=== PATIENT | female | born 1980 | race Caucasian/White ===

== ENCOUNTER 2016-04-07 06:26 | Observation (INO) | payer BC, MEDICAID ==
[~2016-04-07 06:26] MED LIST: Buffered Lidocaine 1% SYR 3ML* 3 ML/SYR SYRINGE INTRADERM ONE; Dexamethasone IV* 4 MG/ML 1 ML (4 MG) IV SLOW PU ONE; Famotidine IV* 10 MG/ML 2 ML (20 mg) IV ONE
[2016-04-07] MEDS ORDERED: Thrombin 5,000 UNITS* 1 APPLIC KIT - topical use - TOPICAL ONE (06:54)
[2016-04-07] MEDS ORDERED: Lidocain 1% EPI 1:100,000 * 30 ML MDV ONE (06:54)
[2016-04-07] MEDS ORDERED: Bacitracin IV* 50,000 UNITS INJ ONE (06:55)
[2016-04-07] MEDS ORDERED: Ketorolac INJ* 30 MG/ML 1 ML VIAL ONE (07:10)
[2016-04-07] MEDS ORDERED: Propofol* 10 MG/ML 20 ML BTL IV PUSH ONE (07:10)
[2016-04-07] MEDS ORDERED: Succinylcholine* 20 MG/ML 10 ML VIAL ONE (07:10)
[2016-04-07] MEDS ORDERED: Lidocaine 2% MPF* 2 ML VIAL ONE (07:10)
[2016-04-07] MEDS ORDERED: Ondansetron INJ* 2 MG/ML VIAL ONE (07:10)
[2016-04-07] MEDS ORDERED: Dexamethasone IV* 4 MG/ML 1 ML (4 MG) ONE (07:12)
[2016-04-07] MEDS ORDERED: Clindamycin 900 MG IVPREMIX(* 900 MG/50 ML SDV IV ONE (07:12)
[2016-04-07] MEDS ORDERED: Buffered Lidocaine 1% SYR 3ML* 3 ML/SYR SYRINGE ONE (07:12)
[2016-04-07] MEDS ORDERED: Famotidine IV* 10 MG/ML 2 ML (20 mg) ONE (07:12)
[2016-04-07] MEDS ORDERED: Midazolam* 1 MG/ML 2 ML VIAL (2 MG) ONE (07:18)
[2016-04-07] MEDS ORDERED: fentaNYL* 50 MCG/ML 2 ML VIAL (100 MCG VIAL) ONE (07:18)
[2016-04-07] MEDS ORDERED: Ondansetron INJ* 2 MG/ML VIAL IV PRN ×2 (07:39→08:49)
[2016-04-07] MEDS ORDERED: HYDROmorphone INJ* 1 MG/ML CARPUJECT SYRINGE IV PRN (07:39)
[2016-04-07] MEDS ORDERED: fentaNYL* 50 MCG/ML 2 ML VIAL (100 MCG VIAL) IV PRN (07:39)
[2016-04-07] MEDS ORDERED: PROCHLORPERAZINE INJ 5 MG/ML 2 ML VIAL IV PRN (07:39)
[2016-04-07] MEDS ORDERED: DiMENhydriNATE IV* 50 MG/ML VIAL IV PUSH PRN (07:39)
[2016-04-07] MEDS ORDERED: Scopolamine 1.5 mg* PATCH TRANSDERM PRN (07:39)
[2016-04-07] MEDS ORDERED: Rocuronium* 10 MG/ML VIAL ONE (08:14)
[2016-04-07] MEDS ORDERED: Magnesium Hydroxide LIQ* 30 ML UDC PO PRN (08:49)
[2016-04-07] MEDS ORDERED: Acetaminophen TAB* 325 MG PO PRN (08:49)
[2016-04-07] MEDS ORDERED: Nicotine PATCH 21 MG/24 HR* PATCH TRANSDERM SCH (10:00)
--- NOTE | 2016-04-07 10:10 | RAD ---
INDICATION: Lumbar discectomy L4-L5 level. COMPARISON: Comparison is made with a prior MRI of the lumbar spine from March 23, 2016. TECHNIQUE: A single crosstable portable view of the lumbar spine was obtained in the operating room. FINDINGS: There are several surgical instruments which project posterior at the L4-L5 level. IMPRESSION: INTRAOPERATIVE CONTROL FILMS.
[2016-04-07] MEDS: HYDROcodone/ACETAMIN 5-325 MG* 1 TAB PO PRN ×3 (13:21→21:58)
[2016-04-08] MEDS ORDERED: Ketorolac INJ* 30 MG/ML 1 ML VIAL IV ONE (00:51)
[2016-04-08] MEDS: HYDROcodone/ACETAMIN 5-325 MG* 1 TAB PO PRN ×2 (01:56→05:54)
[2016-04-08] MEDS ORDERED: Nicotine Patch Removal NOTE FOLLOW UP SCH (06:00)
[2016-04-08 07:50] VITALS: BP 108/56
--- NOTE | 2016-04-08 08:15 | PN ---
Progress Note - Progress Note SOAP: Subjective: [This is a 35 year old female s/p lumbar discectomy L4-5 on the right, POD #2. She complains of low back incisional pain, controlled with oral pain medications. She is ambulating independently. She is eating, drinking anf voiding without difficulty. Pre-operative lower extremity pain is improved. Weakness of the right foot remains. She denies numbness, tingling, weakness and pain in the left lower extremity. No headache.] Objective: [ Vital Signs: Temp Pulse Resp BP Pulse Ox 98.0 F 71 16 108/56 99 04/08/16 07:39 04/08/16 07:39 04/08/16 08:03 04/08/16 07:39 04/08/16 07:39 General: Alert and oriented. No distress. Neuro: Right EHL weakness, unchanged from pre-op. Incision: Intact with michele. No signs of infection. Mild tenderness. ] Assessment: [This patient is following a satisfactory post-operative course at this time. ] Plan: [1. Discharge home today. 2. Discharge instructions including wound care and activity level were discussed with the patient.]
--- NOTE | 2016-04-09 19:24 | OP ---
DATE OF OPERATION: 04/07/16 - ROOM #339 DATE OF : 80 SURGEON: Sridhar Pillai MD. SALES AND SERVICE ASSOCIATE: MAXIMINO Martinez. ANESTHESIOLOGIST: Frandy Munoz MD ANESTHESIA: General. PRE-OP DIAGNOSIS: Herniated nucleus pulposus, L4-5, on the right. POST-OP DIAGNOSIS: Herniated nucleus pulposus, L4-5, on the right. OPERATIVE PROCEDURE: Lumbar diskectomy, L4-5, on the right with microdissection. DESCRIPTION OF PROCEDURE: After satisfactory general anesthesia was obtained, the patient was placed on the operating room table in the prone position with the chest supported on the Bogdan frame and the back slightly flexed. The lumbar region was then clipped, prepped and draped in a sterile manner for lumbar laminectomy and a skin incision outlined from L4-L5. This incision was infiltrated with 1% Xylocaine with epinephrine after which it was turned down sharply to the level of the lumbar fascia. The fascia was divided along the spinous processes of L4 and L5 and the paraspinal musculature stripped away from these posterior elements using the periosteal elevator and monopolar cautery. An intraoperative x-ray was obtained verifying proper interspace localization after which a partial hemilaminectomy was carried out by removing the inferior aspect of the L4 lamina and medial aspect of the facet complex using a combination of the Midas-Case drill and Kerrison rongeurs. This was carried superiorly until the attachment of ligamentum flavum was taken down. Ligamentum flavum was then removed with the Kerrison as well. The upper part of L5 was also removed as preoperative imaging had suggested the inferior migration of a large disk fragment. At this point in the procedure, the operating microscope was brought into the field and the remainder of the procedure was done under microscopic visualization. Projecting inferior to the disk space and into the axillary region of the nerve root exposure was a large extruded disk fragment covered by a thin rim of posterior longitudinal ligament. An incision was made in the ligament and large extruded disk fragments removed from basically sitting over the L5 vertebral body. After the fragments were removed, the L5 nerve root could be retracted medially and the disk itself was palpated and was noted to be flat. No attempt was made to enter the disk space itself. After assuring adequate hemostasis, the wound was thoroughly irrigated, after which the fascia was reapproximated with 0 Vicryl suture. The subcutaneous tissue was closed with 3-0 Vicryl suture and the skin closed with skin clips. The estimated blood loss was less than 50 cc and the final sponge, padding, and needle counts were correct. The patient was taken to the recovery room, extubated and in stable condition. [id number]/[facility] #: [id number] MTDD
[2016-04-10] MEDS ORDERED: Scopolamine PATCH Remove* 1 NOTE MISC PATCH OFF ONE (07:40)
--- NOTE | 2016-04-19 22:46 | DS ---
DISCHARGE SUMMARY: DATE OF ADMISSION: 04/07/16 DATE OF DISCHARGE: 04/08/16 DISCHARGE DIAGNOSIS: Herniated nucleus pulposus, L4-5, on the right. SPECIAL PROCEDURE: Lumbar diskectomy, L4-5, on the right. HOSPITAL COURSE: This 35-year-old female was seen in office with signs and symptoms of a lumbar radiculopathy on the right. She failed to improve with conservative treatments and was admitted at this time for elective surgical intervention. On the day of admission, she was taken to surgery where under general anesthesia, a lumbar diskectomy at L4-5 on the right operation was carried out. Postoperatively, she was feeling well. Pain was well controlled with oral pain medications. Preoperative lower extremity symptoms improved. She was ambulating independently. She was eating, drinking, and voiding without difficulty. On the first postoperative day, she was discharged home to the care of her family. Discharge instructions including wound care and activity level were discussed with the patient and provided. She will be seen in office in 7 to 10 days for followup and staple removal. DISCHARGE MEDICATIONS: Include Banner 5/325 mg 2 tabs every 4 hours by mouth as needed for pain. MAXIMINO SUN [id number]/[facility] #: [id number] DIANA
== END 2016-04-08 09:35 | disposition home or self-care (01) ==
LOC: EDBD → OR 06:26 → SSU 08:49
PROVIDERS: ADMIT Neurological Surgery; ATTEND Neurological Surgery
PROC: 01NB0ZZ Release Lumbar Nerve, Open Approach (ICD-10-PCS; principal; 2016-04-07 07:45)
DX: M51.16 Intervertebral disc disorders with radiculopathy, lumbar region (principal); I10 Essential (primary) hypertension; F17.210 Nicotine dependence, cigarettes, uncomplicated
CPT/HCPCS: 72100; 88304; 99406; A9270-GY; G0378; J0330; J1100; J1885; J2250; J2405; J2704; J3010

== ENCOUNTER 2017-04-09 20:27 | Inpatient (IN) | payer BC, MEDICAID, OTHER ==
[2017-04-10 01:28] LABS: ABS Basophils 0 10^3/ul (0-0.2); ABS Eosinophils 0.1 10^3/ul (0-0.6); ABS Lymphocytes 3.8 10^3/ul (1.0-4.8); ABS Monocytes 0.7 10^3/ul (0-0.8); ABS Nucleated RBC 0 10^3/ul; Eosinophil % 0.7 % (0-6); Hematocrit 42 % (35-47); Hemoglobin 14.4 g/dl (12.0-16.0); Lymphocyte % 35.5 % (25-47); Mean Corpuscular HGB Conc 34 g/dl (31-36); Mean Corpuscular Hemoglobin 33 pg (27-31); Mean Corpuscular Volume 96 fL (80-97); Mean Platelet Volume 9 um3 (7.4-10.4); Nucleated Red Blood Cells % 0.1; Platelet Count 179 10^3/ul (150-450); Red Blood Count 4.38 10^6/ul (4.0-5.4); Red Cell Distribution Width 13 % (10.5-15); Urine Appearance Clear; Urine Blood Negative (Negative); Urine Color Straw; Urine Ketones Negative (Negative); Urine Protein Negative (Negative); Urine Specific Gravity 1.003 (1.010-1.030); Urine Urobilinogen Negative (Negative); White Blood Count 10.7 10^3/ul (3.5-10.8)
[2017-04-10 01:40] LABS: EGFR Non-African American 93.1 (>60)
[2017-04-10] MEDS ORDERED: chlorproMAZINE TAB* 50 MG Q6H PRN AGITATION PO (06:30)
[2017-04-10] MEDS ORDERED: Al Hydrox/Mg Hydrox/Simet LIQ* 30 ML UDC PO PRN (06:30)
--- NOTE | 2017-04-10 06:50 | ED ---
Xander Clark Thomas, scribed for Yoshi Mora on 04/09/17 at 2308 . Back Pain - HPI Summary HPI Summary: The patient is a 35 year old female presenting to the emergency department complaining of chronic back pain that worsened today when she was playing with her son and fell. Her pain is concentrated to L4L5. She states she is neurologically off. The pain is rated 4/10. She reports that the cold weather has worsened her back pain. She denies suicidal ideation and depression. - History of Current Complaint Chief Complaint: EDBackInjuryPain Stated Complaint: ANXIEY Time Seen by Provider: 04/09/17 22:55 Hx Obtained From: Patient Onset/Duration: Lasting Hours - chronic back pain worsened today, Still Present Timing: Constant Back Pain Location: Is Discrete @ - L4L5 Severity Currently: Moderate Pain Intensity: 4 Pain Scale Used: 0-10 Numeric Alleviating Symptom(s): Nothing Associated Signs And Symptoms: Negative: Fever, Other - depression, suicidal ideation - Allergies/Home Medications Allergies/Adverse Reactions: Allergies Allergy/AdvReac Type Severity Reaction Status Date / Time Penicillins Allergy Severe Hives Verified 04/07/16 07:09 PMH/Surg Hx/FS Hx/Imm Hx Endocrine/Hematology History: Denies: Hx Diabetes Cardiovascular History: Denies: Hx Hypertension, Hx Pacemaker/ICD Respiratory History: Reports: Hx Asthma - sport induced, 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 C SECTION - 1999,2000,2001, 2007. 2006 - REMOVAL IUD. lumbar puncture 2008 Hx Anesthesia Reactions: No Infectious Disease History: No Infectious Disease History: Denies: Traveled Outside the [place] in Last 30 Days - Family History Known Family History: Positive: Other - Patient denies relevant FHx - Social History Alcohol Use: None Substance Use Type: Reports: None Hx Tobacco Use: Yes Smoking Status (MU): Current Every Day Smoker Type: Cigarettes Amount Used/How Often: 10 a day Review of Systems Negative: Fever Positive: Other - Back pain Negative: Depressed, Other - suicidal ideation All Other Systems Reviewed And Are Negative: Yes Physical Exam - Summary Physical Exam Summary: Appearance: Well appearing, no pain distress Skin: warm, dry, reflects adequate perfusion Head/face: normal Eyes: EOMI, RAGHU ENT: normal Neck: supple, non-tender Respiratory: CTA, breath sounds present Cardiovascular: RRR, pulses symmetrical Abdomen: non-tender, soft Bowel: present Musculoskeletal: normal, strength/ROM intact Neuro: normal, sensory motor intact, A&Ox3 Psychiatric: Flight of ideas. Anxious. Triage Information Reviewed: Yes Vital Signs On Initial Exam: Initial Vitals Temp Pulse Resp BP Pulse Ox 99 F 102 22 143/55 98 04/09/17 20:46 04/09/17 20:46 04/09/17 20:46 04/09/17 20:46 04/09/17 20:46 Vital Signs Reviewed: Yes Diagnostics - Vital Signs Vital Signs Temp Pulse Resp BP Pulse Ox 04/09/17 20:46 99 F 102 22 143/55 98 - Laboratory Lab Results: Lab Results 04/10/17 04/10/17 04/10/17 Range/Units 00:25 00:25 00:25 WBC 10.7 (3.5-10.8) 10^3/ul RBC 4.38 (4.0-5.4) 10^6/ul Hgb 14.4 (12.0-16.0) g/dl Hct 42 (35-47) % MCV 96 (80-97) fL MCH 33 H (27-31) pg MCHC 34 (31-36) g/dl RDW 13 (10.5-15) % Plt Count 179 (150-450) 10^3/ul MPV 9 (7.4-10.4) um3 Neut % (Auto) 56.5 (38-83) % Lymph % (Auto) 35.5 (25-47) % Gladwin % (Auto) 6.9 (1-9) % Eos % (Auto) 0.7 (0-6) % Baso % (Auto) 0.4 (0-2) % Absolute Neuts (auto) 6.0 (1.5-7.7) 10^3/ul Absolute Lymphs (auto) 3.8 (1.0-4.8) 10^3/ul Absolute Monos (auto) 0.7 (0-0.8) 10^3/ul Absolute Eos (auto) 0.1 (0-0.6) 10^3/ul Absolute Basos (auto) 0 (0-0.2) 10^3/ul Absolute Nucleated RBC 0 10^3/ul Nucleated RBC % 0.1 Sodium 138 (133-145) mmol/L Potassium 3.6 (3.5-5.0) mmol/L Chloride 107 (101-111) mmol/L Carbon Dioxide 22 (22-32) mmol/L Anion Gap 9 (2-11) mmol/L BUN 4 L (6-24) mg/dL Creatinine 0.71 (0.51-0.95) mg/dL Est GFR ( Amer) 119.8 (>60) Est GFR (Non-Af Amer) 93.1 (>60) BUN/Creatinine Ratio 5.6 L (8-20) Glucose 104 H (70-100) mg/dL Calcium 9.8 (8.6-10.3) mg/dL Total Bilirubin 0.90 (0.2-1.0) mg/dL AST 18 (13-39) U/L ALT 13 (7-52) U/L Alkaline Phosphatase 76 (34-104) U/L Total Protein 7.3 (6.4-8.9) g/dL Albumin 4.6 (3.2-5.2) g/dL Globulin 2.7 (2-4) g/dL Albumin/Globulin Ratio 1.7 (1-3) TSH 0.86 (0.34-5.60) mcIU/mL Beta HCG, Quant < 0.60 mIU/mL Urine Color Urine Appearance Urine pH (5-9) Ur Specific [place] (1.010-1.030) Urine Protein (Negative) Urine Ketones (Negative) Urine Blood (Negative) Urine Nitrate (Negative) Urine Bilirubin (Negative) Urine Urobilinogen (Negative) Ur Leukocyte Esterase (Negative) Urine Glucose (Negative) Salicylates < 2.50 (<30) mg/dL Urine Opiates Screen None detected (None Detect) Acetaminophen < 15 mcg/mL Ur Barbiturates Screen None detected (None Detect) Ur Phencyclidine Scrn None detected (None Detect) Ur Amphetamines Screen None detected (None Detect) U Benzodiazepines Scrn None detected (None Detect) Urine Cocaine Screen None detected (None Detect) U Cannabinoids Screen Presumptive positive H (None Detect) Serum Alcohol < 10 (<10) mg/dL 04/10/17 Range/Units 00:25 WBC (3.5-10.8) 10^3/ul RBC (4.0-5.4) 10^6/ul Hgb (12.0-16.0) g/dl Hct (35-47) % MCV (80-97) fL MCH (27-31) pg MCHC (31-36) g/dl RDW (10.5-15) % Plt Count (150-450) 10^3/ul MPV (7.4-10.4) um3 Neut % (Auto) (38-83) % Lymph % (Auto) (25-47) % Gladwin % (Auto) (1-9) % Eos % (Auto) (0-6) % Baso % (Auto) (0-2) % Absolute Neuts (auto) (1.5-7.7) 10^3/ul Absolute Lymphs (auto) (1.0-4.8) 10^3/ul Absolute Monos (auto) (0-0.8) 10^3/ul Absolute Eos (auto) (0-0.6) 10^3/ul Absolute Basos (auto) (0-0.2) 10^3/ul Absolute Nucleated RBC 10^3/ul Nucleated RBC % Sodium (133-145) mmol/L Potassium (3.5-5.0) mmol/L Chloride (101-111) mmol/L Carbon Dioxide (22-32) mmol/L Anion Gap (2-11) mmol/L BUN (6-24) mg/dL Creatinine (0.51-0.95) mg/dL Est GFR ( Amer) (>60) Est GFR (Non-Af Amer) (>60) BUN/Creatinine Ratio (8-20) Glucose (70-100) mg/dL Calcium (8.6-10.3) mg/dL Total Bilirubin (0.2-1.0) mg/dL AST (13-39) U/L ALT (7-52) U/L Alkaline Phosphatase (34-104) U/L Total Protein (6.4-8.9) g/dL Albumin (3.2-5.2) g/dL Globulin (2-4) g/dL Albumin/Globulin Ratio (1-3) TSH (0.34-5.60) mcIU/mL Beta HCG, Quant mIU/mL Urine Color Straw Urine Appearance Clear Urine pH 6.0 (5-9) Ur Specific [place] 1.003 L (1.010-1.030) Urine Protein Negative (Negative) Urine Ketones Negative (Negative) Urine Blood Negative (Negative) Urine Nitrate Negative (Negative) Urine Bilirubin Negative (Negative) Urine Urobilinogen Negative (Negative) Ur Leukocyte Esterase Negative (Negative) Urine Glucose Negative (Negative) Salicylates (<30) mg/dL Urine Opiates Screen (None Detect) Acetaminophen mcg/mL Ur Barbiturates Screen (None Detect) Ur Phencyclidine Scrn (None Detect) Ur Amphetamines Screen (None Detect) U Benzodiazepines Scrn (None Detect) Urine Cocaine Screen (None Detect) U Cannabinoids Screen (None Detect) Serum Alcohol (<10) mg/dL Result Diagrams: 04/10/17 00:25 04/10/17 00:25 Lab Statement: Any lab studies that have been ordered have been reviewed, and results considered in the medical decision making process. - Radiology CXR Xray Interpretation: No Acute Changes - Negative Radiology Interpretation Completed By: ED Physician L-Spine XR Xray Interpretation: No Acute Changes - Negative XR Radiology Interpretation Completed By: ED Physician Back Pain Course/Dx - Course Assessment/Plan: The patient is a 35 year old female presenting to the emergency department complaining of chronic back pain that worsened today when she was playing with her son and fell. CXR and L-Spine XR were negative. She had flight of ideas and was agitated. The patient was medically cleared for mental health evaluation. The patient is signed out to the next ED physician pending mental health evaluation. - Diagnoses Differential Diagnosis/HQI/PQRI: Positive: Strain, Sprain, Other - psychosis Provider Diagnoses: Back pain, Psychosis Discharge - Discharge Plan Condition: Stable Disposition: OTHER Discharge Disposition Comment: Sign out to the next ED attending pending mental health evaluation. The documentation as recorded by the Xander cotto Thomas accurately reflects the service I personally performed and the decisions made by , Yoshi Mora.
--- NOTE | 2017-04-10 07:56 | RAD ---
HISTORY: Back pain, right-sided chest pain COMPARISONS: May 31, 2016 VIEWS: 4: Frontal dual-energy and lateral views of the chest. FINDINGS: CARDIOMEDIASTINAL SILHOUETTE: The cardiomediastinal silhouette is normal. ERWIN: The erwin are normal. PLEURA: The costophrenic angles are sharp. No pleural abnormalities are noted. LUNG PARENCHYMA: There is patchy alveolar opacification of the lingula overlying the left cardiophrenic angle, new from the previous examination. ABDOMEN: The upper abdomen is clear. There is no subphrenic gas. BONES AND SOFT TISSUES: No bone or soft tissue abnormalities are noted. OTHER: None. IMPRESSION: PATCHY ATELECTASIS VERSUS EARLY CONSOLIDATION OF THE LINGULA Findings were reviewed with the emergency department at approximately 7:52 AM on April 10, 2017
--- NOTE | 2017-04-10 07:57 | RAD ---
HISTORY: Back pain COMPARISONS: April 07, 2016 MRI dated March 23, 2016 VIEWS: 5 , Frontal, lateral, coned-down lateral sacral, and bilateral oblique views of the lumbar spine. FINDINGS: ALIGNMENT: The alignment is normal. VERTEBRAL BODIES: The vertebral body heights are normal. The interpedicular distances are normal. There is anterolateral marginal osteophyte formation most mass located changes at L4-L5. JOINTS: The facet joints are normal. INTERVERTEBRAL DISCS: There is loss of intervertebral disc height at L4-L5 SOFT TISSUE: Unremarkable. OTHER: The pelvis is unremarkable. The lung bases are clear. IMPRESSION: DEGENERATIVE DISC DISEASE AT L4-L5, STABLE FROM PREVIOUS EXAMINATIONS.
[2017-04-10] MEDS: Vitamin THERAPEUTIC TAB PO SCH (10:08)
[2017-04-10] MEDS ORDERED: Mouth Piece, Nicotine* 1 EACH CARTRIDGE INH SCH (19:15)
[2017-04-10] MEDS ORDERED: Nicotine Inhaler* 10 MG AMP ONE (19:30)
[2017-04-10] MEDS ORDERED: Mouth Piece, Nicotine* 1 EACH CARTRIDGE ONE (19:30)
[2017-04-10] MEDS ORDERED: Nicotine GUM* 2 MG PO PRN (20:14)
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
[2017-04-10] MEDS: QUEtiapine TAB* 25 MG PO SCH (22:49)
[2017-04-10] MEDS: Nicotine Inhaler* 10 MG AMP INH PRN (22:52)
[2017-04-11] MEDS: Nicotine Inhaler* 10 MG AMP INH PRN ×4 (04:57→22:08)
[2017-04-11] MEDS: Vitamin THERAPEUTIC TAB PO SCH (08:46)
--- NOTE | 2017-04-11 12:54 | PN ---
MHU: Group Therapy Note - Service Type Service Type: 11757 Group Psychotherapy - Cognitive Behavioral Group Therapy ( CBT):Patient was attentive and participatory in CBT programming this morning, and remained in good behavioral control. Patient expressed positive insights regarding relevant treatment interventions and goals.
--- NOTE | 2017-04-11 13:35 | PN ---
Subjective - Subjective Date of Service: 04/11/17 Service Type: 00144 Hosp care 15 min low complexity Subjective: Kavitha remains hyperverbal but is less pressured and is much more cooperative today. She acknowledges that her behavior has been out of the ordinary over the past several days and now denies the reality of earlier endorsed delusions about the existence of a ray and her home being under surveillance. "I got all that stuff from the television. I was binging on TV because we just got cable. That's where I got all that stuff about Griselda and museums and rays. I was totally confused." Kavitha attributes this confusion to intense physical pain she has been experiencing in her lumbar back, which has worsened since an L4-L5 diskectomy she received by neurosurgeon Dr. Pillai here at [facility] in March of 2016. "It feels like it's leaking CSF out of my spine." She is requesting neurosurgery consultation. The patient denies SI or HI and states that she will call her brother and sister to address the concerns they had with her recent behavior. This clinician did speak with her sister, Liana Thomson ([phone]), who reiterated the delusional and unsafe symptoms that Kavitha was displaying prior to admission. The patient is still refusing treatment with quetiapine. Objective - Appearance Appearance: Well Developed/Nourished Dysmorphic Features: No Hygiene: Normal Grooming: Fairly Well Kept - Behavior Psychomotor Activities: Abnormal-Increased Exhibits Abnormal Movement: No - Attitude and Relatedness Attitude and Relatedness: Superficially Cooperative Eye Contact: Good - Speech Quality: Pressured Latencies: Short Quantity: Copious - Mood Patient's Decription of Mood: "Great" - Affect Observed Affect: Expansive Affect Consistent with: Euphoria - Thought Process Patient's Thought Process: Tangential Thought Content: No Passive Wish, No Suicidal Planning, No Homicidal Ideation, No Paranoid Ideation - Sensorium Experiencing Hallucinations: No, Sensorium is Clear Type of Hallucinations: Visual: No, Auditory: No, Command: No - Level of Consciousness Level of Consciousness: Alert Orientation: Yes Intact, Yes Orientated to Time, Yes Orientated to Place, Yes Orientated to Person - Impulse Control Impulse Control: Poor - Insight and Judgement Insight and Judgement: Impaired - Group Participation Particating in Group Activities: Yes - Medication Management Medication Management Adherence: No Assessment - Assessment Merits Inpatient Hospitalization: For Immediate Safety, For Stabilization Inpatient DSM-IV Dx: Bipolar DO, Type I, MRE manic, severe with psychotic features Clinical Impression: 36 y.o. , white female with a history of ADHD and behavioral problems as an adolescent and chronic cannabis abuse brought in by her family involuntarily due to recent bizarre, pressured, delusional behavior culminating in an attempt to jump out of her brother's moving vehicle enroute to the hospital. The patient has numerous psychosocial stressors such as physical pain and disability secondary to back injury and surgery one year ago, financial debt with risk of home foreclosure and a son with significant mental health and behavioral issues. Plan - Plan Treatment Plan: Name: KAVITHA LIMON Birthdate: 1980 [id number] The patient meets criteria for bipolar parvin. We are offering quetiapine 50mg PO qhs but she is declining it, attributing her symptoms to her lumbar back issues. We have ordered neurosurgical consultation. Will continue to monitor and treat on an inpatient setting in a locked and secured therapeutic environment. Continued Medication Management: Start Medication Medications: Current Medications Acetaminophen (Tylenol Tab*) 650 mg PO Q4H PRN PRN Reason: PAIN or TEMP > 101 F Al Hydrox/Mg Hydrox/Simethicone (Maalox Plus*) 30 ml PO Q4H PRN PRN Reason: INDIGESTION Chlorpromazine HCl (Thorazine Tab*) 50 mg PO Q6H PRN PRN Reason: .AGITATION/ANXIETY Last Admin: 04/10/17 19:22 Dose: 50 mg Device (Nicotine Mouth Piece*) 1 each INH .[facility] Multivitamins (Theragran Tab*) 1 tab PO DAILY [facility] Last Admin: 04/11/17 08:46 Dose: 1 tab Nicotine (Nicotine Inhaler*) 10 mg INH Q2H PRN PRN Reason: CRAVING Last Admin: 04/11/17 11:22 Dose: 10 mg Nicotine Polacrilex (Nicotine Gum*) 2 mg PO Q2H PRN PRN Reason: CRAVING Quetiapine Fumarate (Seroquel Tab*) 50 mg PO BEDTIME [facility] Last Admin: 04/10/17 22:49 Dose: Not Given - Discharge Plan Discharge Plan: Inpatient Hospitalization
[2017-04-11] MEDS: QUEtiapine TAB* 25 MG PO SCH (20:13)
--- NOTE | 2017-04-11 21:08 | PN ---
Progress Note - Progress Note Date of Service: 04/11/17 SOAP: Subjective: []Asked to see patient with recent history of worsening back pain. Pain localized to thoracolumbar junction.History of prior Lumbar Discectomy at L4-5 on the RT with her last f/u being 05/18/16.At that time she had mild EHL weakness but her pain was much better. She was admitted for psychiatric issues and is feeling much better today. No radiographic updated studies have been done. Objective: []SLR neg on RT Mildly pos on left at 45 degrees Motor normal Sens intact No spasm noted on exam Assessment: []She has predominantly back > leg pain Plan: []Recommend evaluation as out patient post discharge
[2017-04-11] MEDS: Acetaminophen TAB* 325 MG PO PRN (21:41)
[2017-04-12] MEDS: Acetaminophen TAB* 325 MG PO PRN ×3 (01:12→21:19)
[2017-04-12] MEDS: Nicotine Inhaler* 10 MG AMP INH PRN ×4 (06:35→21:19)
[2017-04-12] MEDS: Vitamin THERAPEUTIC TAB PO SCH (08:20)
--- NOTE | 2017-04-12 11:54 | PN ---
MHU: Group Therapy Note - Service Type Service Type: [id number] Group Psychotherapy - Cognitive Behavioral Group Therapy ( CBT):Patient was attentive and participatory in CBT programming this morning, and remained in good behavioral control. Patient expressed positive insights regarding relevant treatment interventions and goals.
--- NOTE | 2017-04-12 14:23 | PN ---
Subjective - Subjective Date of Service: 04/12/17 Service Type: [id number] Hosp care 15 min low complexity Subjective: The patient is still slightly hyperverbal, but more anxious than manic. She was seen by neurosurgery yesterday and is agreeable with following up on her back pain issues on an outpatient basis. "I really think that's what drove me crazy. My back was just so bad I couldn't even sleep or do nothing!" I received a voicemail message from the patient's sister, Liana Thomson ([phone]) indicating that Rajeev sounds back to her baseline. She's been calm and reasonable on the unit, going to groups and behaving in a safe fashion. We have not observed any psychotic statements or behaviors. She indicates an interest in leaving tomorrow so that she can take her 15 y.o. son to a [place] court hearing on Monday. She denies SI or HI. Objective - Appearance Appearance: Well Developed/Nourished Dysmorphic Features: No Hygiene: Normal Grooming: Well Kept - Behavior Psychomotor Activities: Normal Exhibits Abnormal Movement: No - Attitude and Relatedness Attitude and Relatedness: Cooperative Eye Contact: Fair - Speech Quality: Unpressured Latencies: Short Quantity: Copious - Mood Patient's Decription of Mood: "Good" - Affect Observed Affect: Good Affect Consistent with: Euthymia - Thought Process Patient's Thought Process: Coherent Thought Content: No Passive Wish, No Suicidal Planning, No Homicidal Ideation, No Paranoid Ideation - Sensorium Experiencing Hallucinations: No, Sensorium is Clear Type of Hallucinations: Visual: No, Auditory: No, Command: No - Level of Consciousness Level of Consciousness: Alert Orientation: Yes Intact, Yes Orientated to Time, Yes Orientated to Place, Yes Orientated to Person - Impulse Control Impulse Control: Intact - Insight and Judgement Insight and Judgement: Good - Group Participation Particating in Group Activities: Yes - Medication Management Medication Management Adherence: No Assessment - Assessment Merits Inpatient Hospitalization: Consolidate Improvements, Pending Safe DC Plan Inpatient DSM-IV Dx: Bipolar DO, Type I, MRE manic, severe with psychotic features Clinical Impression: 36 y.o. , white female with a history of ADHD and behavioral problems as an adolescent and chronic cannabis abuse brought in by her family involuntarily due to recent bizarre, pressured, delusional behavior culminating in an attempt to jump out of her brother's moving vehicle enroute to the hospital. The patient has numerous psychosocial stressors such as physical pain and disability secondary to back injury and surgery one year ago, financial debt with risk of home foreclosure and a son with significant mental health and behavioral issues. Plan - Plan Treatment Plan: Name: RAJEEV LIMON Birthdate: 1980 [id number] The patient's parvin is improving with sleep and conservative milieu support and programming. We are offering quetiapine 50mg PO qhs but she is declining it, attributing her symptoms to her lumbar back issues. Appreciate neurosurgical consultation. If she continues to present as safe we will likely d/c her to home tomorrow. Due to abnormal CXR results we will order CT of chest. Patient denies SOB cough or wheezing. Continued Medication Management: Start Medication Medications: Current Medications Acetaminophen (Tylenol Tab*) 650 mg PO Q4H PRN PRN Reason: PAIN or TEMP > 101 F Last Admin: 04/12/17 06:35 Dose: 650 mg Al Hydrox/Mg Hydrox/Simethicone (Maalox Plus*) 30 ml PO Q4H PRN PRN Reason: INDIGESTION Chlorpromazine HCl (Thorazine Tab*) 50 mg PO Q6H PRN PRN Reason: .AGITATION/ANXIETY Last Admin: 04/10/17 19:22 Dose: 50 mg Device (Nicotine Mouth Piece*) 1 each INH .[facility] Multivitamins (Theragran Tab*) 1 tab PO DAILY [facility] Last Admin: 04/12/17 08:20 Dose: 1 tab Nicotine (Nicotine Inhaler*) 10 mg INH Q2H PRN PRN Reason: CRAVING Last Admin: 04/12/17 13:13 Dose: 10 mg Nicotine Polacrilex (Nicotine Gum*) 2 mg PO Q2H PRN PRN Reason: CRAVING Quetiapine Fumarate (Seroquel Tab*) 50 mg PO BEDTIME [facility] Last Admin: 04/11/17 20:13 Dose: Not Given - Discharge Plan Discharge Plan: Inpatient Hospitalization
--- NOTE | 2017-04-12 14:53 | RAD ---
HISTORY: Abnormal chest x-ray COMPARISONS: April 09, 2017 plain film TECHNIQUE: Multiple contiguous axial CT scans of the chest were obtained without intravenous contrast. Coronal and sagittal multiplanar reformations are also submitted for review. FINDINGS: The study is limited by the lack of intravenous contrast. This limits evaluation of the solid organs and vasculature. NECK AND THYROID: The lower neck and thyroid are unremarkable. CHEST WALL: There is no lower cervical, axillary, or supraclavicular lymphadenopathy by size criteria. HEART AND PERICARDIUM: The heart is unremarkable. AORTA AND PULMONARY VASCULATURE: The aorta and pulmonary vasculature are normal. MEDIASTINUM: There is no mediastinal lymphadenopathy by size criteria. ERWIN: There is no hilar lymphadenopathy by size criteria. AIRWAY AND ESOPHAGUS: The airway is unremarkable, without endobronchial filling defect. The esophagus is grossly normal. LUNG PARENCHYMA: There is minimal linear atelectasis versus pleuroparenchymal scarring of the lingula. There are multiple bilateral small pulmonary parenchymal nodules measuring up to 0.4 cm in size. Hospice Executive Director lesions can be seen of the lower lobes bilaterally on axial image 36, within the lingula on axial image 32, and in the right upper lobe on axial image 31.. PLEURA: No pleural abnormalities are noted. UPPER ABDOMEN: The patient is status post mastectomy. BONES AND SOFT TISSUES: No bone or soft tissue abnormalities are noted. OTHER: None. IMPRESSION: 1. MULTIPLE PULMONARY PARENCHYMAL NODULES MEASURING UP TO 0.4 CM IN SIZE. THE RECOMMENDATIONS FOR FOLLOWUP AND MANAGEMENT OF INCIDENTALLY DETECTED MULTIPLE PULMONARY NODULES LESS THAN 6 MM IN SIZE, IN A PATIENT WITHOUT A HISTORY OF MALIGNANCY, INCLUDE NO FOLLOWUP FOR A LOW-RISK PATIENT OR OPTIONAL FOLLOWUP CT IN 12 MONTHS FOR A HIGH RISK PATIENT. 2. MINIMAL LINEAR ATELECTASIS OF THE LINGULA. NOTES: SIZE = AVERAGE LENGTH AND WIDTH; HIGH RISK IS DEFINED A HISTORY OF SMOKING OR OTHER KNOW RISK FACTORS FOR LUNG CANCER; LOW RISK IS DEFINED MINIMAL OR ABSENT HISTORY OF SMOKING OR OTHER KNOWN RISK FACTORS. Loree, Brenda, ILSA Gee, LASHAY Parra, et al (2017) "Guidelines for Management of Incidental Pulmonary Nodules Detected on CT Images: From the Fleischner Society 2017." Radiology; 284(1): 228-243. doi:[id number]/[id number]
[2017-04-12] MEDS: QUEtiapine TAB* 25 MG PO SCH (21:18)
[2017-04-13] MEDS: Nicotine Inhaler* 10 MG AMP INH PRN (07:37)
[2017-04-13] MEDS: Vitamin THERAPEUTIC TAB PO SCH (08:09)
[2017-04-13 08:12] VITALS: BP 125/63
--- NOTE | 2017-04-13 11:29 | PN ---
MHU: Group Therapy Note - Service Type Service Type: [id number] Group Psychotherapy - Cognitive Behavioral Group Therapy ( CBT):Patient was attentive and participatory in CBT programming this morning, and remained in good behavioral control. Patient expressed positive insights regarding relevant treatment interventions and goals.
--- NOTE | 2017-04-13 16:16 | DS ---
DATE OF ADMISSION: 04/10/2017. DATE OF DISCHARGE: 04/13/2017. DISCHARGE DIAGNOSES: AXIS I: Bipolar disorder, type 1, most recent episode manic, severe with psychotic features; cannabis use disorder. AXIS II: Deferred. AXIS III: History of L4-5 diskectomy in March 2016, pulmonary nodules of unspecified etiology. AXIS IV: Severe, primary support, legal and financial stressors. AXIS V: At the time of admission was 35 and at that time of discharge is 60. CONDITION AT THE TIME OF DISCHARGE: Improved. The patient is euthymic. She has been safe on all checks. She is calm, cooperative, and participating in group therapies. I have spoken with her brother, Warren Prabhakar, and her sister , Adrienne Thomson, and they have met her both in person and spoken with her over the phone and the family is indicating that she is back to her baseline. They are in agreement with the discharge plan. The patient has improved in this setting. She is appropriately requesting discharge and she is agreeable with outpatient treatment in the community. Unfortunately, the patient is not agreeable with a trial of mood stabilizing medication, preferring to use more conservative means of psychotherapy and clean healthy living. There has been no further evidence of psychotic thought process for the past three days. MENTAL STATUS EXAM AT THE TIME OF DISCHARGE: The patient is a middle-aged, white female who is clean and well-groomed. She appears slightly older than her stated age. She is wearing a purple long sleeve T-shirt and jeans. She is calm, cooperative, and easy to establish a rapport with. Speech has a normal rate, tone and volume. Mood appears to euthymic with a mildly expansive affect. Thought process is linear and goal-directed. Thought content is significant for her desire to be discharged from the hospital to get back to her children. She is denying both suicidal and homicidal ideations and there is no further evidence of psychosis. Insight and judgment are fair in that she is willing to receive outpatient therapy in the community. Cognitively, she is awake and alert with what would appear to be an average intellect. DIAGNOSTIC STUDIES: The patient had a chest x-ray on the 09 of April which revealed patchy atelectasis versus early consolidation of the lingula. This was followed up with a CT image of her chest on the 12 of April which showed multiple pulmonary parenchymal nodules measuring up to 0.4 cm in size. The radiology recommendation was for follow-up and management of incidental pulmonary nodules less than 6 mm in size, in a patient without malignancy, include either no follow-up or 12 month rescanning. DISCHARGE INSTRUCTIONS TO THE PATIENT: A. Medications: None. B. Diet: Regular. C. Activities: As tolerated. The patient is strongly advised to discontinue smoking; however, she is declining the offer of nicotine replacement therapies, indicating her preference to resume smoking on an outpatient basis. In the event that she changes her mind, she has been given the [facility] Smokers' Quitline, which is toll free at . There are no laboratory or diagnostic studies pending at this time. D. Follow-up care: The patient will be seen at the [facility] in [place], [place] within one week of discharge. Additionally, she will be following up with her neurosurgeon on an outpatient basis, that is Dr. Sridhar Pillai, within one week of discharge. In addition, we are recommending that she see optician apprentice dispensing Dr. Mao within two weeks of discharge to further evaluate her lung pathology. E. Substance abuse follow-up: The patient is declining substance abuse treatment referrals for her ongoing cannabis use disorder. HOSPITAL COURSE - PART A: Reason for admission: The patient is a 36-year-old, , white female with a history of chronic cannabis abuse who was brought to the emergency room by her brother due to agitated psychotic behavior for the last three to four weeks. Apparently, the patient has been calling multiple extended family members, including her sister and two of her aunts, and telling them that she has constructed a ray machine with the help of the [employer] and that she has investigated her family's genealogy and believes that she is related to inventor Lyssa Villalobos. Apparently when her brother attempted to drive her to the hospital, she threatened to jump out of the vehicle and made an attempt to do so and was prevented only by child proof safety locks. The only way her brother convinced her to come to the hospital was to get a "genetic test" to confirm whether she was related to Mr. Villalobos. The patient endorses at the time of admission that she had only been sleeping three hours per night. She stated in the ER that she believes that her spine is leaking cerebrospinal fluid from back surgery that she had approximately one year ago here at [facility]. When I spoke with her brother, Warren, he indicates that he had been estranged from her since November due to an interpersonal conflict, but it was his understanding that three weeks ago she began calling relatives for information about their family. They were concerned enough to contact him and when he went to her home, she was quoted as stating "it's not safe to talk here at the house." She then had him drive her out into the country where she talked to him about rays and needing to sneak this machine out the back door of a museum in [place]. He did confirm that when she was en route to the hospital she tried to jump out of his vehicle. When I met with the patient she was agitated and hyperverbal. She stated "I can't believe my little brother took me here, he has no right to do that." She indicated that she injured her back working a job on 2015 and has not been able to work since, although she states that she just started a [employer] company with her . She was agitated, yelling at me to take the metal out of her spine and demanding to see a neurosurgeon. 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 She did exhibit core features of parvin, including distractibility, indiscreet behavior, grandiosity, flight of ideas, extreme pressured hyperverbal speech, and poor sleep. In terms of stressors, she complained about her daughter being ungrateful. She also complained about her 16-year-old son being on PINS and [facility] diversion. She was also experiencing financial difficulties and stated that she owes $84,000.00 worth of credit card debt and is in some risk of losing her house. HOSPITAL COURSE - PART B: Psychiatric treatment rendered: The patient was admitted to the [facility] where she was placed on q.15 minute checks for her own safety. I did attempt to start a trial of Seroquel 50 mg p.o. nightly; however, the patient refused this throughout her hospital stay. She did continue to complain of back pain and we sought neurosurgical consultation from Dr. Sridhar Pillai, who evaluated her on the 11 of April. It was Dr. Pillai that did her back procedure one year ago and he recommended that he see her on an outpatient basis following discharge from the hospital. It is notable that the patient had an abnormal chest x-ray, followed up by an abnormal chest CT. I spoke with the Hospitalist Service medical receptionist biller and they recommended that the patient follow-up with outpatient Pulmonology, specifically Dr. Mao, with whom we have arranged the patient to have an outpatient appointment. The patient improved with conservative milieu treatment. She started going to groups, started socializing with peers and started opening up to this clinician as well as other staff members. She certainly has been under a lot of stress and has been missing sleep recently due to her chronic pain issues. When she rested well following the first night after receiving a prn of Thorazine, she seemed to improve markedly. She became much more euthymic, much more calm, focused, able to carry on a rational conversation. Her delusions disappeared and she expressed embarrassment over the behaviors that led to hospitalization. She allowed her brother to visit and she often spoke with her sister over the phone, and both family members were contacted by the hospital staff and indicated that she was back to her normal self. At this time, she is appropriately requesting discharge and she is agreeable with outpatient psychotherapy at [facility]. Although she continues to decline mood stabilizing medications, she has improved to the point where we no longer feel legally justified keeping her on an involuntary basis. For this reason, the patient is being discharged today to follow-up with outpatient services. [id number]/[facility] #: [id number] DIANA
== END 2017-04-13 13:33 | disposition home or self-care (01) | DRG 753 ==
LOC: EDBD → ED 20:27 → BSU 04-10 06:28
PROVIDERS: ADMIT Psychiatry & Neurology Psychiatry; ATTEND Psychiatry & Neurology Psychiatry
PROC: GZHZZZZ Group Psychotherapy (ICD-10-PCS; principal; 2017-04-11)
DX: F31.2 Bipolar disorder, current episode manic severe with psychotic features (principal); F12.10 Cannabis abuse, uncomplicated; F17.210 Nicotine dependence, cigarettes, uncomplicated; G89.29 Other chronic pain; M54.9 Dorsalgia, unspecified; J45.909 Unspecified asthma, uncomplicated; F43.10 Post-traumatic stress disorder, unspecified; F41.9 Anxiety disorder, unspecified; G43.909 Migraine, unspecified, not intractable, without status migrainosus; F90.9 Attention-deficit hyperactivity disorder, unspecified type; R91.8 Other nonspecific abnormal finding of lung field; Z88.0 Allergy status to penicillin; Z87.442 Personal history of urinary calculi; Z81.8 Family history of other mental and behavioral disorders
CPT/HCPCS: 36415; 71046; 71250; 72110; 80053; 80307; 80320; 80329; 81003; 84443; 84702; 85025; 90853; 99222; 99231; 99238; A9270-GY; G0480

== ENCOUNTER 2017-05-12 14:10 | Inpatient (IN) | payer MEDICAID, OTHER ==
[2017-05-12] MEDS ORDERED: Haloperidol INJ IV/IM* 5 MG/ML AMP ONE (14:22)
[2017-05-12] MEDS ORDERED: diPHENhydraMINE IV* 50 MG/ML 1 ml VIAL (BENADRYL) ONE (14:22)
[2017-05-12] MEDS ORDERED: LORazepam INJ* 2 MG/ML 1 ML VIAL ONE (14:22)
[2017-05-12] MEDS ORDERED: diPHENhydraMINE IV* 50 MG/ML 1 ml VIAL (BENADRYL) IM ONE (14:45)
[2017-05-12] MEDS ORDERED: LORazepam INJ* 2 MG/ML 1 ML VIAL IM ONE (14:46)
[2017-05-12] MEDS ORDERED: Haloperidol INJ IV/IM* 5 MG/ML AMP IM ONE (14:47)
[2017-05-12 15:19] LABS: ABS Basophils 0.1 10^3/ul (0-0.2); ABS Eosinophils 0.1 10^3/ul (0-0.6); ABS Lymphocytes 2.5 10^3/ul (1.0-4.8); ABS Monocytes 0.8 10^3/ul (0-0.8); ABS Neutrophils 8.3 10^3/ul (1.5-7.7); ABS Nucleated RBC 0 10^3/ul; Eosinophil % 0.6 % (0-6); Hematocrit 42 % (35-47); Hemoglobin 14.7 g/dl (12.0-16.0); Lymphocyte % 21.2 % (25-47); Mean Corpuscular HGB Conc 35 g/dl (31-36); Mean Corpuscular Hemoglobin 33 pg (27-31); Mean Corpuscular Volume 95 fL (80-97); Mean Platelet Volume 9 um3 (7.4-10.4); Nucleated Red Blood Cells % 0; Platelet Count 156 10^3/ul (150-450); Red Blood Count 4.42 10^6/ul (4.0-5.4); Red Cell Distribution Width 13 % (10.5-15); White Blood Count 11.7 10^3/ul (3.5-10.8)
[2017-05-12] MEDS ORDERED: Potassium Chlor TAB* 20 MEQ TAB.ER PO ONE (16:08)
--- NOTE | 2017-05-12 16:42 | RAD ---
Indication: Altered mental status. Comparison: No relevant prior exams available on the [facility] PACS for comparison. Technique: Noncontrast CT vertex of skull through foramen magnum. Report: The sulci, ventricles, and basal cisterns are normal for age. Ray matter white matter differentiation is preserved without evidence for edema. No intra or extra axial hemorrhage, mass, or fluid collection detected. Unremarkable visualized orbital contents. Unremarkable calvarium and skull base. Unremarkable scalp. The visualized paranasal sinuses and mastoid air spaces are clear. IMPRESSION: Negative unenhanced head CT.
[2017-05-12 18:25] LABS: Urine Appearance Cloudy; Urine Blood Negative (Negative); Urine Color Amber; Urine Ketones 1+ (Negative); Urine Protein 2+(100 mg/dL) (Negative); Urine Specific Gravity 1.029 (1.010-1.030); Urine Urobilinogen Negative (Negative)
--- NOTE | 2017-05-12 18:49 | RAD ---
INDICATION: Possible trauma. Altered mental status. COMPARISON: No relevant prior exams available on the [facility] PACS for comparison. TECHNIQUE: Multidetector CT images foramen magnum to lung apices without contrast. Multiplanar reformation. REPORT: Small LEFT apical pulmonary blebs noted. Negative for pneumothorax within the [id number]. Normal vertebral alignment accounting for exam positioning without spondylolisthesis or subluxation at any level. Negative for cervical vertebral body or posterior element fracture. Negative for paravertebral hematoma. At C5-C6 there is moderate disc space narrowing. Moderate dorsal disc osteophyte complex results in mild impression on the ventral margin of the thecal sac with resulting mild acquired central canal stenosis. Uncinate process spurring results in slight bilateral foraminal stenosis at C5-C6. There is mild vertebral endplate osteophytosis anteriorly at C3-C4 and C6-C7. IMPRESSION: No CT evidence for traumatic cervical spine injury.
--- NOTE | 2017-05-12 18:58 | RAD ---
Indication: Mental status change. Possible trauma. Comparison: April 12, 2017 CT. Technique: Noncontrast CT thoracic spine. Multiplanar reformation. Report: Negative for thoracic spine fracture or malalignment. Negative for significant arthropathic change. Preserved disc spaces. No paravertebral soft tissue abnormalities evident. IMPRESSION: Negative CT of the thoracic spine.
--- NOTE | 2017-05-12 19:20 | RAD ---
Indication: Mental status change. Possible trauma. History of lumbar spine surgery. Comparison: April 09, 2017 radiographs. March 23, 2016 MRI. Technique: Noncontrast CT lumbar sacral spine. Multiplanar reformation. Report: Surgical clips at the level of the gallbladder fossa. Negative for paravertebral hematoma. Negative for fracture or spondylolysis at any level. Normal vertebral alignment without spondylolisthesis at any level. T12-L1: Unremarkable disc level for age without acquired spinal stenosis. L1-L2: Unremarkable disc level for age without acquired spinal stenosis. L2-L3: Unremarkable disc level for age without acquired spinal stenosis. L3-L4: Unremarkable disc level for age without acquired spinal stenosis. L4-L5: Advanced disc space narrowing, mild vertebral and plate osteophytosis, and reactive endplate sclerosis and cystic change. Postsurgical change of RIGHT-sided laminotomy. No compelling CT evidence for significant acquired central canal stenosis. Rostrocaudal subluxation due to disc height loss, vertebral endplate osteophytosis and mild facet joint osteoarthritis results in slight bilateral foraminal stenosis without significant change. L5-S1: Moderate disc space narrowing without change. Negative for central canal stenosis. Mild facet joint osteoarthritis and degenerative spondylosis results in mild bilateral foraminal stenosis without change. IMPRESSION: 1. Negative for traumatic injury of the lumbar sacral spine. 2. Post RIGHT unilateral laminotomy at L4-L5. 3. Slight bilateral L4-L5 and mild bilateral L5-S1 foraminal stenosis without significant interval change.
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
[2017-05-12] MEDS ORDERED: KETAMINE HCL* 50 MG/ML 10 ML VIAL IM ONE (23:15)
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
[2017-05-13] MEDS ORDERED: LORazepam TAB(*) 1 MG PO ONE (03:57)
[2017-05-13] MEDS ORDERED: Haloperidol TAB* 5 MG PO ONE (03:57)
[2017-05-13] MEDS ORDERED: Al Hydrox/Mg Hydrox/Simet LIQ* 30 ML UDC PO PRN (05:56)
[2017-05-13] MEDS ORDERED: Haloperidol TAB* 5 MG PO PRN (05:58)
[2017-05-13] MEDS ORDERED: LORazepam TAB(*) 1 MG PO PRN (05:59)
[2017-05-13] MEDS ORDERED: Mouth Piece, Nicotine* 1 EACH CARTRIDGE INH ONE (06:00)
[2017-05-13] MEDS: Vitamin THERAPEUTIC TAB PO SCH (09:39)
--- NOTE | 2017-05-13 23:56 | HP ---
HISTORY AND PHYSICAL: DATE OF ADMISSION: 05/13/2017. SOURCE OF INFORMATION: The patient is a poor historian, who ending the interview abruptly stating she wanted to return to bed to catch up on her sleep. This note is based on the limited interview with the patient and mental health evaluation and review of her recent admission here. IDENTIFYING DATA: Ms. Jordan is a 36-year-old partner domicile unemployed, female, who was referred by her 18-year-old daughter and the daughter' s teacher and she eloped from the emergency room area and was brought back on status and was agitated and needed to be medicated for her agitation as other attempt to deescalate her were unsuccessful and she was admitted on emergency status. CHIEF COMPLAINT: "I have been on a crazy mystical ride. My dreams are messed up, my days are messed up, I must be leaking spinal fluid again!" HISTORY OF PRESENT ILLNESS: The patient has a history of recent admission here from 04/10/17 to 04/13/17. She was admitted in an acutely manic state, was diagnosed with bipolar 1, manic severe with psychotic features and cannabis use disorder. During the admission, the patient refused medication, accepted doses of Thorazine sporadically for stress and for sleep. Her condition improved and she was discharged with referral back to [facility]. The patient relates that she has been keeping her therapy appointment there with Araceli Mathur, but she has not changed her mind about taking medication, "medication is a poison! All I need is fruits and vegetable and healthy living. " The patient alluded to difficulty with insomnia. She averages sleeping 3 hours a night. She blames her back problems for her lack of sleep. With regards to this admission, she said she had a philosophical discussion with her daughter and yesterday her daughter, Carrie, who is 18, and the daughter's teacher invited her to go to the [employer] which she agreed to and instead she was driven to the emergency room of this hospital. She said she felt frightened and thought that she was going to be restrained, so she left the emergency room to go to the [employer] [facility] [place] next door where she was easily located by police and returned to the emergency room on status. The patient admits to daily cannabis use. She denies feeling depressed although she presents as pressured in speech. She denies racing thoughts, but she was clearly delusional. PAST PSYCHIATRIC HISTORY: Recent admission here from 04/10/17 to 04/13/17. She [place] [facility] where she sees therapist, Araceli Mathur. She has history of refusing medication citing lack of need and concern about the side effects. PAST MEDICAL HISTORY: Medical history is remarkable for chronic back pain. PAST SURGICAL HISTORY: Back surgery at the L4-5 spine at [facility] in March of 2016. ALLERGIES: The patient is allergic to PENICILLIN. SUBSTANCE ABUSE HISTORY: The patient admits to smoking marijuana 2 to 3 times daily. She denies the use of alcohol, misuse of prescription medication, or use of other illicit drugs. Smokes about half a pack of cigarettes daily. FAMILY HISTORY: PTSD and ODD in the patient's 16-year-old son and history of schizophrenia and suicide attempt in the patient's niece. SOCIAL HISTORY: The patient was born in [place], [place], moved around [place], [place] growing up. Both parents are , has an older sister and a younger brother. She resides in the [facility] since 2002. She is from her and lives with her boyfriend in [place], [place]. She is unemployed. She has an 18-year-old daughter and 9-year-old son, who reside with her and the boyfriend. She is educated up to tenth grade but later obtained her GED, has worked in the past at [employer] here in [place]. She is collecting public assistance, but briefly is to apply for disability. Neither jewish nor spiritual. She has a history of having been arrested in February of 2017 for disorderly conduct following a fight with her daughter. REVIEW OF MEDICAL SYMPTOMS: Denies persistently depressed mood. Denies symptoms of parvin but presents as pressured in speech. She is circumstantial in her thinking, grossly delusional. She denies psychotic symptoms. Denies difficulty with anxiety. Denies obsessive thoughts or compulsive rituals. Back pain. PHYSICAL EXAMINATION The patient declined citing lack of need. VITAL SIGNS: Admission vital signs: Blood pressure is 119/81, pulse is 100, respirations 16, temperature 99.8. MENTAL STATUS EXAMINATION: Finds a middle-aged white female with shoulder length brown hair, finds as thin frame, 36-year-old female with shoulder length brown hair, who is poorly groomed, somewhat disheveled in appearance. She makes intense eye contact. She is pressured in speech. Her mood is labile. Her affect is irritable. She is grossly delusional. Makes grandiose statements about being related to the EMT of [employer]. She presents as circumstantial in her thinking, but denies auditory or visual hallucinations. She avidly denies suicidal or homicidal ideation or any urges to self mutilate. She contracted for safety. Her insight and judgement are grossly impaired. Impulse control is questionable. She is alert and oriented x3. SUMMARY: A 36-year-old woman with previous diagnosis of bipolar 1 disorder, previous hospitalization and nonadherence with outpatient psychiatric treatment , who was referred by relatives and was admitted in decompensated state following recent admission in this unit. She has medical history of chronic back pain, status post back surgery. She admits to daily cannabis use. There is family history of PTSD and ODD in her son and schizophrenia and suicide attempt in her niece. The patient described stressors of chronic pain, occupational and social support deficit. DIAGNOSTIC IMPRESSION: Bipolar 1 disorder, current episode manic, severe with psychotic features, cannabis use disorder, cannabis dependence. TREATMENT PLAN: Admit to mental health unit. 15-minute checks. Full code status. Legal status is emergency. Initiate comprehensive milieu, individual and group psychotherapeutic support. The patient will be encouraged to attend [facility] programming. Medication management would involve psychoeducation about the benefits of trial of psychotic and/or a mood stabilizing agent to stabilize her mood and discharge planning would involve coordination of aftercare with her provider and [facility]. [id number]/[facility] #: [id number] DIANA
[2017-05-14] MEDS: Vitamin THERAPEUTIC TAB PO SCH (08:08)
[2017-05-14] MEDS: Nicotine Inhaler* 10 MG AMP INH PRN ×3 (08:10→18:24)
[2017-05-14] MEDS: Acetaminophen TAB* 325 MG PO PRN ×2 (13:21→18:25)
[2017-05-15] MEDS: Acetaminophen TAB* 325 MG PO PRN ×4 (06:02→22:36)
[2017-05-15] MEDS: Nicotine Inhaler* 10 MG AMP INH PRN ×2 (08:04→17:34)
[2017-05-15] MEDS: Vitamin THERAPEUTIC TAB PO SCH (08:04)
[2017-05-15] MEDS: Nicotine GUM* 2 MG PO PRN ×2 (12:43→19:59)
--- NOTE | 2017-05-15 17:32 | PN ---
Subjective - Subjective Date of Service: 05/15/17 Subjective: Kavitha is better organized in her thinking and behavior, apologetic for behavior at admission, she argues against the diagnosis of bipolar disorder, believes she has PTSD and anxiety. She hypothesizes that her back issues lead to insomnia and her sleep deprivation leads to "manic-like behavior." She assented to trial of Latuda. Per staff, she has been adherent to unit's routines. Objective - Appearance Appearance: Healthy Appearing Dysmorphic Features: No Hygiene: Normal Grooming: Well Kept - Behavior Psychomotor Activities: Normal Exhibits Abnormal Movement: No - Attitude and Relatedness Attitude and Relatedness: Cooperative Eye Contact: Fair - Speech Quality: Unpressured Latencies: Normal Quantity: Appropriate - Mood Patient's Decription of Mood: better - Affect Observed Affect: Non-labile Affect Consistent with: Euthymia - Thought Process Patient's Thought Process: Coherent, Goal Directed Thought Content: No Passive Wish, No Suicidal Planning, No Homicidal Ideation, No Paranoid Ideation - Sensorium Experiencing Hallucinations: No, Sensorium is Clear - Level of Consciousness Level of Consciousness: Alert Orientation: Yes Intact - Impulse Control Impulse Control: Intact - Insight and Judgement Insight and Judgement: Fair - Group Participation Particating in Group Activities: Yes - Medication Management Medication Management Adherence: Yes Assessment - Assessment Merits Inpatient Hospitalization: For Ongoing Evaluation, Consolidate Improvements, For Discharge Planning Inpatient DSM-V Dx: F31.2 Clinical Impression: SUMMARY: A 36-year-old woman with previous diagnosis of bipolar 1 disorder, previous hospitalization and nonadherence with outpatient psychiatric treatment , who was referred by relatives and was admitted in decompensated state following recent admission in this unit. She has medical history of chronic back pain, status post back surgery. She admits to daily cannabis use. There is family history of PTSD and ODD in her son and schizophrenia and suicide attempt in her niece. The patient described stressors of chronic pain, occupational and social support deficits. DIAGNOSTIC IMPRESSIONS: Bipolar 1 disorder, current episode manic, severe with psychotic features, cannabis use disorder, cannabis dependence. Stabilizing in this structured setting, agreeable to trial of Lurasidone, needs continued admission for consolidation. Plan - Plan Treatment Plan: Name: KAVITHA LIMON Birthdate: 1980 [id number] Continued Medication Management: Start Medication Medications: Current Medications Acetaminophen (Tylenol Tab*) 650 mg PO Q4H PRN PRN Reason: PAIN or TEMP > 101 F Last Admin: 05/15/17 10:59 Dose: 650 mg Al Hydrox/Mg Hydrox/Simethicone (Maalox Plus*) 30 ml PO Q4H PRN PRN Reason: INDIGESTION Haloperidol (Haldol Tab*) 5 mg PO Q4H PRN PRN Reason: AGITATION/ ANXIETY Lorazepam (Ativan Tab(*)) 2 mg PO Q4H PRN PRN Reason: AGITATION/ ANXIETY Multivitamins (Theragran Tab*) 1 tab PO DAILY JOEY Last Admin: 05/15/17 08:04 Dose: 1 tab Nicotine (Nicotine Inhaler*) 10 mg INH Q2H PRN PRN Reason: CRAVING Last Admin: 05/15/17 08:04 Dose: 10 mg Nicotine Polacrilex (Nicotine Gum*) 2 mg PO Q2H PRN PRN Reason: CRAVING Last Admin: 05/15/17 12:43 Dose: 2 mg - Discharge Plan Discharge Plan: Outpatient Follow Up Additional Comments: [facility] with Araceli Mathur LCSW.
[2017-05-15] MEDS: Lurasidone(*) 20 MG TAB PO SCH (19:56)
[2017-05-15] MEDS: Ibuprofen TAB* 400 MG PO PRN (19:56)
[2017-05-16] MEDS: Ibuprofen TAB* 400 MG PO PRN ×3 (01:47→20:59)
[2017-05-16] MEDS: Acetaminophen TAB* 325 MG PO PRN (07:17)
[2017-05-16] MEDS: Vitamin THERAPEUTIC TAB PO SCH (08:08)
[2017-05-16] MEDS: Nicotine Inhaler* 10 MG AMP INH PRN (12:05)
--- NOTE | 2017-05-16 16:35 | PN ---
Subjective - Subjective Service Type: 31949 Hosp care 35 min high complexity Subjective: Patient reports feeling improved sensory and is able to identify source of spinal pain. She states she is concerned about continued hospitalization due to missing PT and therapy appointments at [facility] in [place]. Also she states that her S.O. is expecting her to be home in order for him to go to work. Patient reports that her family is now more understanding about her physical limitations and are preparing to ease her burdens at home. 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 Patient denies marijuana use "for weeks" and explains positive UDS likely due to history of chronic use. Vacuum Conditioner Operator phoned PT office in [place]. Patient missed her appt last week on 05/11 at 11am. She had called to cancel the previous appt due to transportation. Therefore, she does not have any appointments scheduled. Vacuum Conditioner Operator phoned [facility] and patient is not in the system. She attends family sessions for her daughter's therapy. Vacuum Conditioner Operator notified patient of above and instructed her to call and identify how to re-engage in PT. Also instructed patient that she will be recommended to obtain individual therapy through [facility] and that this will be initiated by treatment team. Objective - Appearance Appearance: Thin Framed Dysmorphic Features: No Hygiene: Normal Grooming: Well Kept - Behavior Psychomotor Activities: Normal Exhibits Abnormal Movement: No - Attitude and Relatedness Attitude and Relatedness: Cooperative Eye Contact: Good - Speech Quality: Pressured - loud at times Latencies: Normal Quantity: Appropriate - Mood Patient's Decription of Mood: "Good" - Affect Observed Affect: Expansive Affect Consistent with: Euphoria - Thought Process Patient's Thought Process: Circumstantial Thought Content: No Passive Wish, No Suicidal Planning, No Homicidal Ideation, No Paranoid Ideation - Sensorium Experiencing Hallucinations: No, Sensorium is Clear Type of Hallucinations: Visual: No, Auditory: No, Command: No - Level of Consciousness Level of Consciousness: Alert Orientation: Yes Intact, Yes Orientated to Time, Yes Orientated to Place, Yes Orientated to Person - Impulse Control Impulse Control: Tenuous - Insight and Judgement Insight and Judgement: Poor - Group Participation Particating in Group Activities: Yes - Medication Management Medication Management Adherence: Yes Assessment - Assessment Merits Inpatient Hospitalization: For Immediate Safety, For Stabilization, Consolidate Improvements Inpatient DSM-V Dx: F31.2 Clinical Impression: 36-year-old woman with previous diagnosis of bipolar 1 disorder, previous hospitalization and nonadherence with outpatient psychiatric treatment, who was referred by relatives and was admitted in decompensated state following recent admission in this unit. She has medical history of chronic back pain, status post back surgery. There is family history of PTSD and ODD in her son and schizophrenia and suicide attempt in her niece. The patient described stressors of chronic pain, occupational and social support deficits. Plan - Plan Treatment Plan: Name: RAJEEV LIMON Birthdate: 1980 [id number] continue acute intensive psychiatric treatment. decrease to q30min and allow staff pass. Continued Medication Management: Different Medication Medications: Current Medications Acetaminophen (Tylenol Tab*) 650 mg PO Q4H PRN PRN Reason: PAIN or TEMP > 101 F Last Admin: 05/16/17 07:17 Dose: 650 mg Al Hydrox/Mg Hydrox/Simethicone (Maalox Plus*) 30 ml PO Q4H PRN PRN Reason: INDIGESTION Haloperidol (Haldol Tab*) 5 mg PO Q4H PRN PRN Reason: AGITATION/ ANXIETY Ibuprofen (Motrin Tab*) 400 mg PO Q6H PRN PRN Reason: PAIN Last Admin: 05/16/17 08:07 Dose: 400 mg Lorazepam (Ativan Tab(*)) 2 mg PO Q4H PRN PRN Reason: AGITATION/ ANXIETY Lurasidone HCl (Latuda) 20 mg PO 1900 [facility] Last Admin: 05/15/17 19:56 Dose: 20 mg Multivitamins (Theragran Tab*) 1 tab PO DAILY [facility] Last Admin: 05/16/17 08:08 Dose: 1 tab Nicotine (Nicotine Inhaler*) 10 mg INH Q2H PRN PRN Reason: CRAVING Last Admin: 05/16/17 12:05 Dose: 10 mg Nicotine Polacrilex (Nicotine Gum*) 2 mg PO Q2H PRN PRN Reason: CRAVING Last Admin: 05/15/17 19:59 Dose: 2 mg - Discharge Plan Discharge Plan: Outpatient Follow Up Outpatient Program: [facility]
[2017-05-16] MEDS: Lurasidone(*) 20 MG TAB PO SCH (20:05)
[2017-05-16] MEDS: Nicotine GUM* 2 MG PO PRN (21:00)
[2017-05-17 07:43] VITALS: BP 134/57
[2017-05-17] MEDS: Ibuprofen TAB* 400 MG PO PRN (07:57)
[2017-05-17] MEDS: Vitamin THERAPEUTIC TAB PO SCH (07:57)
[2017-05-17] MEDS: Acetaminophen TAB* 325 MG PO PRN (12:01)
--- NOTE | 2017-05-17 12:05 | PN ---
MHU: Group Therapy Note - Service Type Service Type: 12547 Group Psychotherapy - Cognitive Behavioral Group Therapy ( CBT):Patient was attentive and participatory in CBT programming this morning, and remained in good behavioral control. Patient expressed positive insights regarding relevant treatment interventions and goals.
--- NOTE | 2017-05-18 03:09 | DS ---
CC: Shana Pennington NP, [place]; [facility] * DISCHARGE SUMMARY: DATE OF ADMISSION: 05/13/17 DATE OF DISCHARGE: 05/17/17 SUPERVISING PSYCHIATRIST: Dr. Maikel Jo.* (DICTATED BY ALEXIS OROZCO NP) DISCHARGE DIAGNOSIS: Bipolar I disorder, most recent episode, manic. CONDITION AT THE TIME OF DISCHARGE: Improved. The patient is euthymic and in behavioral control. She has been safe on all checks, calm, cooperative and participating in unit programming. The patient has identified feeling more "clear" and has agreed to medication trial of lurasidone. She reports identifying factors leading to the repeat hospitalization. She states agreement with increasing Latuda to 40 mg as this is a more therapeutic dose. The patient reports readiness for discharge and states continued hospitalization causing financial strain on her family. She has been receptive to team suggestion of engaging in individual counseling in addition to family therapy through her daughter's therapist at [facility] [place]. MENTAL STATUS EXAM: At the time of discharge, the patient is thin-framed, middle-aged white female who is adequately groomed. She is dressed in her own clothing. She is not wearing makeup. Her hair is down and well kempt. She appears slightly older than her stated age. She is calm, cooperative, and talkative. Her speech has normal rate, rhythm, and tone. Her mood is "great" and she has consistently bright affect. Thought process is linear and goal directed. Thought content is negative for suicidal ideation and passive wish. She denies suicidal and homicidal ideation. She has been in behavioral control. There is no evidence of continued thought disorder or psychosis. Insight and judgment are fair and that she states understanding her reason for continued hospitalization despite wanting to be discharged yesterday and willingness to receive outpatient therapy. She is awake, alert, and oriented. DISCHARGE INSTRUCTIONS: Given to the patient: A. Medications: The patient will increase Latuda to 40 mg today with meals. The rest of her medications are as needed. 1. Ibuprofen 400 mg p.o. q.6 hours p.r.n. pain. 2. Nicotine gum 2 mg p.o. q.2 hours p.r.n. craving. 3. Nicotine patch 14 mg transdermal daily, remove at bedtime. These were electronically prescribed to [facility] in [place] per the patient's request. B. Diet is regular. C. Activities: Ambulation as tolerated. Tobacco cessation provided. There are no pending diagnostic studies or labs at the time of discharge. D. Followup care: The patient was instructed to follow up with [facility] [place]. She has an intake on 05/19/17 at 10: 45 a.m. She will also follow up as already scheduled with [facility] and she will call her primary care provider, Shana Pennington NP in [place] as needed. E. Substance use followup: The patient denied need for substance use treatment , referral was not made. HOSPITAL COURSE: Part A: Reason for admission: The patient presented to the emergency department when referred by her 18-year-old daughter and her daughter' s teacher. While in the emergency department, the patient eloped and was brought back on 9.45 status. While in the emergency department, she was agitated and required chemical restraints for her safety. The patient was admitted on 9.39 status to the adult behavioral services unit. Part B: Psychiatric treatment rendered: As stated above, the patient was admitted to the adult behavioral services unit. Laboratory data performed was CBC, CMP, lipid profile, TSH, and hemoglobin A1c. Toxicology was positive for cannabinoids. The patient was inconsistent, to the admitting provider she reported smoking marijuana daily, to this senior mortgage underwriter she reported that she had not smoked for "weeks" and did not smoke marijuana since her last admission to this unit in March of this year. Upon interview, the patient was a poor historian. She complained of being sleepy. The patient endorsed insomnia, increased energy. The patient was initially refusing medications. She reported triggers to be working too much and too hard and going against recommendations of limited physical activity after multiple surgeries in the past year. With therapeutic milieu, sleep and additional discussions with psychiatrist, the patient was noted to have increased insight about her behavior in the emergency department and events leading to presentation in the emergency department. She was agreeable to try lurasidone for a bipolar disorder. She expressed fear of side effects and utilized the package insert to identify symptoms that she experienced at baseline. Within one day of initial dose, the patient reported feeling "more clear." She identified that she was able to be more cognitively alert. She was able to think. She also reported improvement in identifying loci of spinal pain and dealing with her own physical movements to improve the pain. The patient reported desire to be discharged as she wanted to attend outpatient therapy, counseling and physical therapy appointments. She gave this senior mortgage underwriter permission to call the facility to identify that she is hospitalized and unable to participate. Both [facility] and [facility] [place] were contacted. It was noted that the patient has cancelled the previous physical therapy appointment, so she did not have another one scheduled. Although she was not an active candidate at [facility] as she was participating in family sessions with her daughter. Interpreter Translator notified Kavitha of this information and encouraged her to participate in individual therapy at [facility] in addition to family therapy with her daughter. The day before discharge, the patient was met by CPS due to concerns as her daughter is not yet 18 years old and under her care. The patient was cooperative with this interview, participated fully. She reports that she declined to give full access of her medical record to CPS as she did not feel this is relevant. On the day of discharge, the patient continued to present as calm, euthymic and in behavioral control. She was friendly and interactive with staff and peers. She has been participating fully in unit programming. She was decreased to 30- minute observation and then allowed to participate in staff pass. Again, the patient advocated for her release due to need for her partner to return to work. Due to obligation to treat in the least restrictive setting, the patient was okayed for discharge by treatment team. She reported eagerness to leave to be able to attend her physical therapy appointment today at 2 p.m. ALEXIS OROZCO, LISA [id number]/[facility] #: [id number] DIANA
== END 2017-05-17 12:30 | disposition home or self-care (01) | DRG 753 ==
LOC: ED 14:10 → BSU 05-13 02:45
PROVIDERS: ADMIT Psychiatry & Neurology Psychiatry; ATTEND Psychiatry & Neurology Psychiatry
DX: F31.2 Bipolar disorder, current episode manic severe with psychotic features (principal); F12.20 Cannabis dependence, uncomplicated; M54.9 Dorsalgia, unspecified; Z88.0 Allergy status to penicillin; Z81.8 Family history of other mental and behavioral disorders
CPT/HCPCS: 36415; 70450; 72125; 72128; 72131; 80053; 80061; 80307; 80320; 80329; 81003; 81015; 83036; 84443; 84702; 85025; 87086; 90853; 99222; 99231; 99233; 99238; 99285; A9270-GY; G0480; J1200; J1630; J2060